=== PATIENT | male | born 1940 | race Hispanic/Latino ===

== ENCOUNTER 2017-01-13 13:48 | Emergency (ER) | payer MEDICARE, OTHER ==
[2017-01-13 14:11] VITALS: BP 166/83
[2017-01-13] MEDS ORDERED: MOTRIN PO ONE (14:11)
[2017-01-13] MEDS ORDERED: BOOSTRIX IM ONE (14:11)
[2017-01-13] MEDS ORDERED: AUGMENTIN 875 MG PO ONE (14:11)
--- NOTE | 2017-01-13 14:11 | Emergency Department Report ---
Chief Complaint: Animal Bite Stated Complaint: DOG BITE/LEFT ARM/RIGHT HAND Time Seen by Provider: 01/13/17 14:06 - HPI History of Present Illness: PT states he was helping his 's coworker clean up his yard. Pt states the man was outside with his dog. the dog broke off the leash and bit the pt on the L arm and R hand. - ROS Review of Systems: + wound + pain - Exam Physical Exam: bite to R post hand L FA dog bite MSE screening note: Focused history and physical exam performed. Due to findings the following was ordered: xr meds ED Disposition for MSE Condition: Stable
--- NOTE | 2017-01-13 15:02 | Emergency Department Report ---
HPI - General Chief Complaint: Animal Bite Time Seen by Provider: 01/13/17 14:06 - HPI HPI: Patient is a 76-year-old male presents to ED complaining of dog bite to his left arm and right hand times one day. Patient states he was at his neighbor's house helping him clean when the dog got loose from the leash and attacked him. Patient states his members at that for many years and believes it don't vaccinated against rabies. Expiratory he denies fevers/chills/nausea/vomiting abdominal pain. ED Past Medical Hx - Past Medical History Previous Medical History?: Yes Hx Hypertension: Yes Hx Diabetes: Yes (>15 YRS) Hx GERD: No Hx Renal Disease: Yes (kidney stones) Hx Arthritis: Yes (SHOULDERS) Hx Kidney Stones: Yes Hx HIV: No - Surgical History Past Surgical History?: Yes Hx Coronary Stent: Yes (10/2007) - Social History Smoking Status: Never Smoker Substance Use Type: None - Medications Home Medications: Home Medications Medication Instructions Recorded Confirmed Last Taken Type Aspirin EC [Aspirin Enteric Coated 81 mg PO QDAY 10/26/15 10/26/15 Unknown History TAB] Calcium Carbonate [Calcium] 500 mg PO DAILY 10/26/15 10/26/15 Unknown History Glucosamine/D3/Boswellia Sherine 1 each PO DAILY 10/26/15 10/26/15 Unknown History [Glucosamine Daily Complex Tab] Lisinopril [Zestril] 20 mg PO QDAY 10/26/15 10/26/15 Unknown History Simvastatin [Zocor TAB] 40 mg PO QHS 10/26/15 10/26/15 Unknown History glipiZIDE [Glucotrol] 5 mg PO BID 10/26/15 10/26/15 Unknown History metFORMIN [Glucophage] 1,000 mg PO QDAY 10/26/15 10/26/15 Unknown History Amoxicillin/K Clav Tab [Augmentin 1 tab PO Q12HR #20 tab 01/13/17 Unknown Rx 875 mg] HYDROcodone/APAP 5-325 [Hensley 1 each PO Q6H #12 tablet 01/13/17 Unknown Rx 5-325 mg TAB] Ibuprofen [Motrin] 600 mg PO Q8H PRN #30 tablet 01/13/17 Unknown Rx Neomycn/Baci Zn/Pmyx Bs/Pramox 1 applic TP TID #1 tube 01/13/17 Unknown Rx [Triple Antibiotic Plus Ointmnt] ED Review of Systems ROS: Stated complaint: DOG BITE/LEFT ARM/RIGHT HAND Other details as noted in HPI Constitutional: denies: chills, fever Eyes: denies: eye pain, eye discharge, vision change ENT: denies: ear pain, throat pain Respiratory: denies: cough, shortness of breath, wheezing Cardiovascular: denies: chest pain, palpitations Endocrine: no symptoms reported Gastrointestinal: denies: abdominal pain, nausea, diarrhea Genitourinary: denies: urgency, dysuria Musculoskeletal: denies: back pain, joint swelling, arthralgia Skin: denies: rash, lesions Neurological: denies: headache, weakness, paresthesias Psychiatric: denies: anxiety, depression Hematological/Lymphatic: denies: easy bleeding, easy bruising Physical Exam - Physical Exam Vital Signs: Vital Signs 01/13/17 14:08 Temperature 98.4 F Pulse Rate 80 Respiratory 22 Rate Blood Pressure 166/83 O2 Sat by Pulse 99 Oximetry Physical Exam: GENERAL: Alert and oriented x3, no apparent distress, Normal Gait, atraumatic. HEAD: Head is normocephalic and a-traumatic. EYES: Extra ocular muscles are intact. Pupils are equal, round, and reactive to light and accommodation. LUNGS: Symetrical with respiration, No wheezing, no rales or crackles, CTAB. HEART: S1, S2 present, regular rate and rhythm without murmur, no rubs, no gallops. Non tender to palpation EXTREMITIES/MUSCULOSKELETAL: No cyanosis, clubbing, rash, lesions or edema. Full ROM bilaterally. UE/LE Pulses 2+ bilaterally. NEUROLOGIC: The patient is cooperative with no focal neurologic deficits. Cranial nerves II through XII are grossly intact. Normal speech. Normal sensation in V1, V2, V3 bilaterally. Normal sensation in bilateral upper extremities, No loss of sensation, PSYCHIATRIC: Mood is congruent with affect, denies suicidal or homicidal ideations. SKIN: Warm and dry, 2-3 open bite carl on the left arm. 2 bite carl abrasions on the right posterior hand. Bleeding controlled No lesions, No ulceration or induration present. ED Course Vital Signs 01/13/17 14:08 Temperature 98.4 F Pulse Rate 80 Respiratory 22 Rate Blood Pressure 166/83 O2 Sat by Pulse 99 Oximetry ED Medical Decision Making - Radiology Data Radiology results: report reviewed, image reviewed Right hand: Dog bite. Degenerative changes with bony proliferation and narrowed joint space are identified at the first carpometacarpal junction. The bone structures and joints otherwise are unremarkable with good preservation of the joint spaces and alignment. There is significant vascular calcification in the wrist region predominantly involving the radial artery. No evidence of soft tissue gas or focal swelling. Impression: No acute findings identified. Left forearm: Dog bite. There is subcutaneous gas focally identified in the mid forearm adjacent to the radius shaft. There is mild swelling of the soft tissues from this location toward the wrist. No evidence of underlying bony injury and no foreign body. This a moderate degree of vascular calcification. Impression: Soft tissue injury. Transcribed By: RML Dictated By: TRISTAN PEDROZA MD Electronically Authenticated By: TRISTAN PEDROZA MD Signed Date/Time: 01/13/17 1510 - Medical Decision Making 76-year-old male presents with double by his left arm ED course: Patient received a dose of Augmentin, tetanus booster and pain control. Wounds were cleaned with Betadine and irrigated with normal saline Discussed patient to return in 3 days for wound check, discussed proper wound care with the patient. Discussed with patient to stop by a neighbor's house on the way down to the verified that the dog was vaccinated even though he stated that he thinks that that is vaccinated. Hence this is not a stray dog, given the fact that this is a pet dog, dog is most likely vaccinated dog can be monitored. His vaccination is not required D discussed with the patient that if the case the dog is not vaccinated to return to the ED for vaccination as soon as possible Patient is in no acute distress. Vital signs are normal. He is alert and oriented 3 Critical care attestation.: If time is entered above; I have spent that time in minutes in the direct care of this critically ill patient, excluding procedure time. ED Disposition Clinical Impression: Dog bite Qualifiers: Encounter type: initial encounter Qualified Code(s): W54.0XXA - Bitten by dog, initial encounter Disposition: DC-01 TO HOME OR SELFCARE Is pt being admited?: No Does the pt Need Aspirin: No Condition: Stable Instructions: Animal Bite (ED), Acute Wound Care (ED) Additional Instructions: Follow-up with her primary care physician in 3 days for wound care assessment Take your medication as prescribed Follow cleaning instructions as given. Prescriptions: Amoxicillin/K Clav Tab [Augmentin 875 mg] 1 tab PO Q12HR #20 tab HYDROcodone/APAP 5-325 [Hensley 5-325 mg TAB] 1 each PO Q6H #12 tablet Ibuprofen [Motrin] 600 mg PO Q8H PRN #30 tablet PRN Reason: Pain Neomycn/Baci Zn/Pmyx Bs/Pramox [Triple Antibiotic Plus Ointmnt] 1 applic TP TID #1 tube Referrals: PRIMARY CARE, [Primary Care Provider] - 3-5 Days [facility] [Outside] - 3-5 Days [facility] [Outside] - 3-5 Days [facility] [Outside] - 3-5 Days Forms: Accompanied Note, Work/School Release Form(ED) Time of Disposition: 16:51
--- NOTE | 2017-01-13 15:28 | XRay Report ---
Right hand: Dog bite. Degenerative changes with bony proliferation and narrowed joint space are identified at the first carpometacarpal junction. The bone structures and joints otherwise are unremarkable with good preservation of the joint spaces and alignment. There is significant vascular calcification in the wrist region predominantly involving the radial artery. No evidence of soft tissue gas or focal swelling. Impression: No acute findings identified. Left forearm: Dog bite. There is subcutaneous gas focally identified in the mid forearm adjacent to the radius shaft. There is mild swelling of the soft tissues from this location toward the wrist. No evidence of underlying bony injury and no foreign body. This a moderate degree of vascular calcification. Impression: Soft tissue injury.
[2017-01-13] MEDS ORDERED: NORCO 5/325 PO ONE (16:06)
[2017-01-13] MEDS ORDERED: NACL 0.9% 500 ML IRRIGATION ONE (16:09)
[2017-01-13] MEDS ORDERED: TRIPLE ANTIBIOTIC TP ONE (16:10)
== END 2017-01-13 17:08 | disposition home or self-care (01) ==
LOC: ED 13:48
DX: S41.152A Open bite of left upper arm, initial encounter (principal); S61.451A Open bite of right hand, initial encounter; I10 Essential (primary) hypertension; E11.9 Type 2 diabetes mellitus without complications; M19.90 Unspecified osteoarthritis, unspecified site; Z95.818 Presence of other cardiac implants and grafts; Z79.82 Long term (current) use of aspirin; W54.0XXA Bitten by dog, initial encounter; Y93.89 Activity, other specified; Y99.8 Other external cause status; Y92.89 Other specified places as the place of occurrence of the external cause
CPT/HCPCS: 90471; 90715; A6250